=== PATIENT | male | born 1985 | race African-American/Black ===

== ENCOUNTER 2021-11-10 01:18 | Emergency (ER) | payer SELFPAY ==
[2021-11-10] MEDS ORDERED: Ketorolac Tromethamine 30 MG/ML VIAL ONE (01:58)
== END 2021-11-10 02:13 | disposition home or self-care (01) ==
LOC: ERS 01:18
DX: K02.9 Dental caries, unspecified (principal)
CPT/HCPCS: 96372; 99282; J1885

== ENCOUNTER 2021-12-02 11:20 | Emergency (ER) | payer SELFPAY ==
[2021-12-02] MEDS ORDERED: Ketorolac Tromethamine 30 MG/ML VIAL ONE (12:03)
== END 2021-12-02 12:50 | disposition home or self-care (01) ==
LOC: ERS 11:20
DX: R10.32 Left lower quadrant pain (principal); F17.290 Nicotine dependence, other tobacco product, uncomplicated
CPT/HCPCS: 74176; J1885